=== PATIENT | female | born 1970 | race Caucasian/White ===

== ENCOUNTER 2022-02-01 08:11 | Day surgery (SDC) | payer BC ==
[2022-02-01 08:19] LABS: Specific Gravity 1.015 (1.005-1.030)
[2022-02-01] MEDS ORDERED: Ringers Lactate 1,000 ML IV ONE (08:32)
[2022-02-01] MEDS ORDERED: propofoL 200 MG/20 ML VIAL IV ONE ×2 (14:02)
[2022-02-01] MEDS ORDERED: LIDOCAINE 1% MPF 5 ML VIAL ONE (14:02)
--- NOTE | 2022-02-01 14:21 | ENDO RPT ---
[address], [address] EGD PROCEDURE REPORT EXAM DATE: 02/01/2022 PATIENT NAME: Love Ambrosio MR#: [id number] BIRTHDATE: 1970 ATTENDING: Jose Reddy DR STATUS: outpatient DOUGHNUT FRYER: Nelida Sanchez RN and Pelon Alarcon [facility] INDICATIONS: The patient is a 51 yr old Female here for an EGD due to GERD and history of multiple gastric polyps on fci acid suppression PROCEDURE PERFORMED: EGD with biopsy for H. pylori and EGD with snare polypectomy MEDICATIONS: Per Anesthesia. TOPICAL ANESTHETIC: none CONSENT: The patient understands the risks and benefits of the procedure and understands that these risks include, but are not limited to: sedation, allergic reaction, infection, perforation and/or bleeding. Alternative means of evaluation and treatment include, among others: physical exam, x-rays, and/or surgical intervention. The patient elects to proceed with this endoscopic procedure. DESCRIPTION OF PROCEDURE: During intra-op preparation period all mechanical medical equipment was checked for proper function. Hand hygiene and appropriate measures for infection prevention was taken. Procedure, possible complications, and alternatives including but not limited to the possibility of bleeding, perforation, tear, infection, sepsis, need for surgery, need for blood transfusion, and anesthesia related complications were explained to the patient. After the risks, benefits and alternatives of the procedure were thoroughly explained, Informed consent was verified, confirmed and timeout was successfully executed by the treatment team. The patient was placed in the left lateral position. The patient was anesthetized with topical anesthesia. Through the anesthetized oropharyngeal area, the scope was passed without any difficulty. The EG-[id number] ([id number]) endoscope was introduced through the mouth and advanced to the second portion of the duodenum. Retroflexed views revealed a small hiatal hernia. The gastroscope was then slowly withdrawn and removed. A small hiatal hernia was found ADVERSE EVENTS: There were no complications. IMPRESSIONS: 1. A small hiatal hernia was found 2. Gastric polyp(s) RECOMMENDATIONS: 1. acid suppression therapy 2. anti-reflux regimen 3. await biopsy results 4. avoid NSAIDS 5. follow-up of helicobacter pylori status, treat if indicated REPEAT EXAM: for EGD. Jose Reddy DR eSigned: Jose Reddy DR 02/01/2022 2:21 PM cc: CPT CODES: ICD9 CODES: PATIENT NAME: Love Ambrosio MR#: [id number]
[2022-02-01 15:10] VITALS: TEMP 97.2; O2SAT 97
[2022-02-01 15:11] VITALS: BP 109/67
== END 2022-02-01 14:45 | disposition home or self-care (01) ==
LOC: OR 08:11 → EDBD 10:15 → OR 14:45
PROVIDERS: ATTEND Surgery
PROC: 0DB98ZX Excision of Duodenum, Via Natural or Artificial Opening Endoscopic, Diagnostic (ICD-10-PCS; 2022-02-01)
PROC: 0DB48ZX Excision of Esophagogastric Junction, Via Natural or Artificial Opening Endoscopic, Diagnostic (ICD-10-PCS; 2022-02-01)
PROC: 0DB78ZX Excision of Stomach, Pylorus, Via Natural or Artificial Opening Endoscopic, Diagnostic (ICD-10-PCS; principal; 2022-02-01 09:45)
DX: K21.9 Gastro-esophageal reflux disease without esophagitis (principal); K31.7 Polyp of stomach and duodenum; K29.50 Unspecified chronic gastritis without bleeding; Z20.822 Contact with and (suspected) exposure to COVID-19
CPT/HCPCS: 88312; 81025; 88305; 43251; 43239; U0003; J2704 ×2; J7120

== ENCOUNTER 2023-02-24 08:23 | Day surgery (SDC) | payer BC ==
[2023-02-24 08:34] LABS: Specific Gravity 1.015 (1.005-1.030)
[2023-02-24 08:57] LABS: Potassium 4.5 mEq/L (3.5-5.1)
[2023-02-24] MEDS ORDERED: Ringers Lactate 1,000 ML IV ONE (10:09)
[2023-02-24] MEDS ORDERED: LIDOCAINE 1% MPF 5 ML VIAL ONE (11:01)
[2023-02-24] MEDS ORDERED: propofoL 200 MG/20 ML VIAL IV ONE ×3 (11:01→11:30)
[2023-02-24 12:58] VITALS: TEMP 98.1
[2023-02-24 13:00] VITALS: BP 159/92; O2SAT 99
--- NOTE | 2023-02-24 17:10 | EKG ---
Test Date: 2023-02-24 Test Time: 08:14:17 Log Getter: YADIRA MEASUREMENT RESULTS: Intervals: Rate: 55 [place]: 152 QRSD: 86 QT: 418 QTc: 399 [place]: P: 5 [place]: 152 QRS: -16 T: 13 INTERPRETIVE STATEMENTS: Sinus bradycardia with sinus arrhythmia Otherwise normal ECG No previous ECG available for comparison Electronically Signed On 02-24-23 17:09:26 CDT by Isai Sevilla
== END 2023-02-24 12:04 | disposition home or self-care (01) ==
LOC: OR 08:23
PROVIDERS: ATTEND Surgery
PROC: 0DB68ZX Excision of Stomach, Via Natural or Artificial Opening Endoscopic, Diagnostic (ICD-10-PCS; 2023-02-24)
PROC: 0DB48ZX Excision of Esophagogastric Junction, Via Natural or Artificial Opening Endoscopic, Diagnostic (ICD-10-PCS; principal; 2023-02-24 11:00)
DX: K31.7 Polyp of stomach and duodenum (principal); K21.9 Gastro-esophageal reflux disease without esophagitis; K29.40 Chronic atrophic gastritis without bleeding
CPT/HCPCS: 93005; 80048; 36415; 88312; 81025; 88305; 43239; J2704 ×3; J2001; J7120

== ENCOUNTER 2024-10-27 10:39 | Day surgery (SDC) | payer BC ==
[2024-10-26 16:00] LABS: Absolute Eosinophils 0.1 K/uL (0-0.5); Absolute Lymphocytes (CBC) 1.6 K/uL (0.7-4.9); Absolute Monocytes 0.5 K/uL (0.1-1.3); Absolute Neutrophil 3.7 K/uL (1.8-8.0); Basophils % 0.3 % (0-1.3); Eosinophils % 1.5 % (0-4.4); Hematocrit 38.1 % (36.0-45.0); Hemoglobin 13.3 g/dL (12.0-15.0); Lymphocytes % 27.1 % (15.3-44.8); MCH 31.4 pg (27.0-35.0); MCHC 34.9 g/dL (32.0-36.0); MCV 90.1 fL (80-100); Monocytes % 8.7 % (3.3-12.3); Neutrophils % 62.4 % (41.7-73.7); Platelets 196 thou/uL (152-406); RBC Red Blood Cell Count 4.22 M/uL (3.86-4.86); Red Cell Distribution Width 13.1 % (12.1-15.2)
[2024-10-26 16:12] LABS: Anion Gap 8.1 mEq/L (5.0-15.0); Potassium 4.1 mEq/L (3.5-5.1)
[2024-10-27] MEDS ORDERED: Ringers Lactate 1,000 ML IV ONE (11:08)
[2024-10-27] MEDS ORDERED: LIDOCAINE 1% MPF 5 ML VIAL ONE ×2 (12:06→12:20)
[2024-10-27] MEDS ORDERED: propofoL 200 MG/20 ML VIAL IV ONE ×3 (12:06→13:14)
[2024-10-27] MEDS ORDERED: EPHEDRINE SULF 50 MG/ML VIAL ONE (13:01)
[2024-10-27 14:11] VITALS: BP 140/79; TEMP 97.5; O2SAT 98
--- NOTE | 2024-10-28 16:51 | EKG ---
Test Date: 2024-10-26 Test Time: 16:01:41 Pin Puller: VILMA MEASUREMENT RESULTS: Intervals: Rate: 56 [place]: 166 QRSD: 82 QT: 402 QTc: 387 [place]: P: 39 [place]: 166 QRS: 7 T: 43 INTERPRETIVE STATEMENTS: Sinus bradycardia Otherwise normal ECG Compared to ECG 02/24/2023 08:14:17 Sinus arrhythmia no longer present Electronically Signed On 10-28-24 16:46:04 LUMBER MOVER by Gabriel Sanchez
== END 2024-10-27 14:02 | disposition home or self-care (01) ==
LOC: OR 10:39
PROVIDERS: ATTEND Surgery
PROC: 0DBN8ZX Excision of Sigmoid Colon, Via Natural or Artificial Opening Endoscopic, Diagnostic (ICD-10-PCS; 2024-10-27)
PROC: 0DB98ZX Excision of Duodenum, Via Natural or Artificial Opening Endoscopic, Diagnostic (ICD-10-PCS; 2024-10-27)
PROC: 0DB68ZX Excision of Stomach, Via Natural or Artificial Opening Endoscopic, Diagnostic (ICD-10-PCS; 2024-10-27)
PROC: 0DB48ZX Excision of Esophagogastric Junction, Via Natural or Artificial Opening Endoscopic, Diagnostic (ICD-10-PCS; 2024-10-27)
PROC: 0DBK8ZX Excision of Ascending Colon, Via Natural or Artificial Opening Endoscopic, Diagnostic (ICD-10-PCS; principal; 2024-10-27 12:45)
PROC: 0DBL8ZX Excision of Transverse Colon, Via Natural or Artificial Opening Endoscopic, Diagnostic (ICD-10-PCS; 2024-10-27 12:45)
DX: Z12.11 Encounter for screening for malignant neoplasm of colon (principal); K29.30 Chronic superficial gastritis without bleeding; K63.5 Polyp of colon; K29.50 Unspecified chronic gastritis without bleeding; K21.00 Gastro-esophageal reflux disease with esophagitis, without bleeding; K31.7 Polyp of stomach and duodenum; K21.9 Gastro-esophageal reflux disease without esophagitis; R10.13 Epigastric pain; K44.9 Diaphragmatic hernia without obstruction or gangrene
CPT/HCPCS: 85025; 80048; 36415; 88312; 88305; 45380; 43239; 43270; J2704 ×2; J2003 ×2; J7120; 93005